=== PATIENT | female | born 1970 | race Caucasian/White ===

== ENCOUNTER 2018-01-09 17:18 | Emergency (ER) | payer BC ==
[2018-01-09] MEDS ORDERED: Norflex 60 MG/2 ML IM ONE (18:18)
[2018-01-09] MEDS ORDERED: Norflex 60 MG/2 ML ONE (18:23)
--- NOTE | 2018-01-09 18:44 | ERPHSYRPT ---
- History of Present Illness Time Seen by Provider: 01/09/18 18:05 Source: patient Exam Limitations: no limitations Patient Subjective Stated Complaint: Neck Pain x6 weeks Triage Nursing Assessment: Pt presents to the ED with complaints of neck pain x approximately 6 weeks ago. Pt states no new injury. Pt states she is seeing specialist and waiting for MRI for diagnosis. Pt states she last saw PCP approximately 4 weeks ago for complaint. No distress noted, skin PWD. Physician History: Pt. presents with neck pain for past 5-6 weeks.. Patient with previous C4/C5 fusion approximately 15 years ago and state was doing fine until recent episodes. Patient described increasing neck discomfort along with muscle spasms. Patient also awakens with left arm numbness/tingling. Patient have seen her neurosurgeon and are fighting insurance company for an MRI. Patient states she tried lifting her grandchild and noticed increasing neck discomfort and spasms a few days ago. Patient is able to use hands and fingers without difficulties Timing/Duration: week(s) (5-6), intermittent, worse Severity: moderate Modifying Factors: Improves With: immobilization (improves), movement (worsens) Associated Symptoms: No shortness of breath, No headaches, No weakness Allergies/Adverse Reactions: No Known Drug Allergies Allergy (Verified 11/08/15 12:56) Hx Tetanus, Diphtheria Vaccination/Date Given: Yes Hx Influenza Vaccination/Date Given: No Hx Pneumococcal Vaccination/Date Given: No Immunizations Up to Date: No - Review of Systems Constitutional: No Fever, No Chills Eyes: No Symptoms Ears, Nose, & Throat: No Symptoms Respiratory: No Symptoms, No Cough, No Dyspnea Cardiac: No Symptoms, No Chest Pain, No Edema, No Syncope Abdominal/Gastrointestinal: No Symptoms, No Abdominal Pain, No Nausea, No Vomiting, No Diarrhea Genitourinary Symptoms: No Symptoms, No Dysuria Musculoskeletal: No Symptoms, No Back Pain, No Neck Pain Skin: No Symptoms, No Rash Neurological: Parasthesia (bilateral upper extremities), No Dizziness, No Focal Weakness, No Headache, No Lethargy, No Sensory Changes, No Speech Changes Psychological: No Symptoms Endocrine: No Symptoms Hematologic/Lymphatic: No Symptoms Immunological/Allergic: No Symptoms All Other Systems: Reviewed and Negative - Past Medical History Pertinent Past Medical History: Yes Neurological History: Other ENT History: No Pertinent History Cardiac History: No Pertinent History Respiratory History: No Pertinent History Endocrine Medical History: No Pertinent History Musculoskeletal History: Osteoarthritis GI Medical History: No Pertinent History History: No Pertinent History Psycho-Social History: No Pertinent History Female Reproductive Disorders: No Pertinent History, Other Other Medical History: shingles - Past Surgical History Past Surgical History: Yes Neuro Surgical History: Neurological Surgery Cardiac: No Pertinent History Respiratory: No Pertinent History Gastrointestinal: No Pertinent History Genitourinary: No Pertinent History Musculoskeletal: Orthopedic Surgery Female Surgical History: Tubal Ligation Other Surgical History: left finger pinned, 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, c5-c6 fusion, knee surgery - Social History Smoking Status: Current every day smoker How long have you smoked: 30 years Exposure to second hand smoke: Yes Drug Use: none Patient Lives Alone: No - Female History Hx Now: No - Nursing Vital Signs Nursing Vital Signs: Initial Vital Signs Temperature 97.9 F 01/09/18 17:31 Pulse Rate 89 01/09/18 17:31 Respiratory Rate 16 01/09/18 17:31 Blood Pressure 176/117 01/09/18 17:31 O2 Sat by Pulse Oximetry 96 01/09/18 17:31 Pain Scale Pain Intensity 8 - Physical Exam General Appearance: no apparent distress, alert Eye Exam: PERRL/EOMI, eyes nml inspection Ears, Nose, Throat Exam: normal ENT inspection, TMs normal, pharynx normal, moist mucous membranes Neck Exam: normal inspection, supple, midline tenderness (there is noted paracervical muscle spasms present) Respiratory Exam: normal breath sounds, lungs clear, No respiratory distress Cardiovascular Exam: regular rate/rhythm, normal heart sounds, normal peripheral pulses Gastrointestinal/Abdomen Exam: soft, normal bowel sounds, No tenderness, No mass Pelvic Exam: not done Rectal Exam: deferred Back Exam: normal inspection, normal range of motion, No CVA tenderness, No vertebral tenderness Extremity Exam: normal inspection, normal range of motion, pelvis stable Neurologic Exam: alert, oriented x 3, cooperative, normal mood/affect, nml cerebellar function, nml station & gait, sensation nml, No motor deficits, No sensory deficit, No disoriented, No motor weakness, No facial droop Skin Exam: normal color, warm, dry, No rash Lymphatic Exam: No adenopathy SpO2: 96 Oxygen Delivery: Room Air - Course Nursing assessment & vital signs reviewed: Yes Ordered Tests: Medication Summary Discontinued Medications Generic Name Dose Route Start Last Admin Trade Name Freq PRN Reason Stop Dose Admin Orphenadrine Citrate 60 mg 01/09/18 18:18 01/09/18 18:24 Norflex 60 Mg/2 Ml IM 01/09/18 18:19 60 mg STAT ONE Administration Orphenadrine Citrate Confirm 01/09/18 18:23 Norflex 60 Mg/2 Ml Administered 01/09/18 18:24 Dose 60 mg .ROUTE .STK-MED ONE - Progress Progress: improved Progress Note: 01/09/18 18:46 we'll give patient Norflex injection for discomfort. We will continue with Flexeril for outpatient therapy Counseled pt/family regarding: diagnosis - Departure Time of Disposition: 18:47 Departure Disposition: Home Clinical Impression: Cervical paraspinal muscle spasm Condition: Stable Critical Care Time: No Referrals: [facility] [Primary Care Provider] - Instructions: Cervical Muscle Strain (DC), Generalized Neck Pain Additional Instructions: Rx: Flexeril. May also take Motrin and/or Tylenol for pain. Return for worsening pain, numbness, tingling, weakness or any problems Prescriptions: Cyclobenzaprine HCl [Flexeril] 10 mg PO BID PRN 10 Days #20 tablet PRN Reason: Muscle Spasms
[2018-01-09 18:56] VITALS: BP 138/84; PULSE 80; O2SAT 98
== END 2018-01-09 18:57 | disposition home or self-care (01) ==
LOC: ED 17:18
DX: M62.830 Muscle spasm of back (principal); M54.2 Cervicalgia; R20.0 Anesthesia of skin
CPT/HCPCS: 96372; 99283; J2360

== ENCOUNTER 2019-04-07 15:00 | Emergency (ER) | payer BC ==
--- NOTE | 2019-04-07 15:14 | ERPHSYRPT ---
- History of Present Illness Time Seen by Provider: 04/07/19 15:14 Source: patient Exam Limitations: no limitations Physician History: 49 y/o white female presents with cough for a week. not responding to otc meds. mucinex liquid helping a little. pt is a smoker of cigarettes. denies cp. Timing/Duration: day(s) (7), worse Cough Quality/Degree: dry cough Possible Cause: no prior episodes Modifying Factors: Improves With: coughing Associated Symptoms: cough Allergies/Adverse Reactions: No Known Drug Allergies Allergy (Verified 11/08/15 12:56) Hx Tetanus, Diphtheria Vaccination/Date Given: Yes Hx Influenza Vaccination/Date Given: No Hx Pneumococcal Vaccination/Date Given: No - Review of Systems Constitutional: No Symptoms Eyes: No Symptoms Ears, Nose, & Throat: No Symptoms Respiratory: Cough Cardiac: No Symptoms Abdominal/Gastrointestinal: No Symptoms Genitourinary Symptoms: No Symptoms Musculoskeletal: No Symptoms Skin: No Symptoms Neurological: No Symptoms Psychological: No Symptoms Endocrine: No Symptoms Hematologic/Lymphatic: No Symptoms Immunological/Allergic: No Symptoms All Other Systems: Reviewed and Negative - Past Medical History Pertinent Past Medical History: Yes Neurological History: Other ENT History: No Pertinent History Cardiac History: No Pertinent History Respiratory History: No Pertinent History Endocrine Medical History: No Pertinent History Musculoskeletal History: Osteoarthritis GI Medical History: No Pertinent History History: No Pertinent History Psycho-Social History: No Pertinent History Female Reproductive Disorders: No Pertinent History, Other Other Medical History: shingles - Past Surgical History Past Surgical History: Yes Neuro Surgical History: Neurological Surgery Cardiac: No Pertinent History Respiratory: No Pertinent History Gastrointestinal: No Pertinent History Genitourinary: No Pertinent History Musculoskeletal: Orthopedic Surgery Female Surgical History: Tubal Ligation Other Surgical History: left finger pinned, 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, c5-c6 fusion, knee surgery - Social History Smoking Status: Current every day smoker How long have you smoked: 30 years Exposure to second hand smoke: Yes Drug Use: none Patient Lives Alone: No - Physical Exam General Appearance: mild distress, alert, anxiety Eye Exam: PERRL/EOMI, eyes nml inspection Ears, Nose, Throat Exam: normal ENT inspection, moist mucous membranes Neck Exam: normal inspection, non-tender, supple, full range of motion Respiratory Exam: normal breath sounds, lungs clear, airway intact, No chest tenderness, No respiratory distress Cardiovascular Exam: regular rate/rhythm, normal heart sounds, normal peripheral pulses Gastrointestinal/Abdomen Exam: No tenderness Pelvic Exam: not done Rectal Exam: not done Back Exam: normal inspection, normal range of motion, No CVA tenderness, No vertebral tenderness Extremity Exam: normal inspection, normal range of motion, pelvis stable Neurologic Exam: alert, oriented x 3, cooperative, supervisor fabrication II-XII nml as tested Skin Exam: normal color, warm, dry Lymphatic Exam: No adenopathy SpO2 Interpretation: normal O2 Delivery: Room Air - Course Nursing assessment & vital signs reviewed: Yes - Progress Progress: unchanged Air Movement: good Blood Culture(s) Obtained: No Antibiotics given: No Counseled pt/family regarding: diagnosis, need for follow-up - Departure Departure Disposition: Home Clinical Impression: Bronchitis Condition: Stable Critical Care Time: No Referrals: [facility] [Primary Care Provider] - Additional Instructions: drink plenty of fluids. avoid exposure to smoke of any kind. follow up with primary doctor for persistent symptoms Prescriptions: Azithromycin 250 mg [Zithromax 250 MG TABLET] 250 mg PO ZPACK #6 tablet Hydrocodone Bit/Acetaminophen [Hydrocodone-Acetaminophen Soln] 10 ml PO Q6H # 120 ml Prednisone 10 mg [Deltasone 10 mg] 10 mg PO TID #12 tablet
[2019-04-07 15:24] VITALS: BP 135/93
[2019-04-07 15:46] VITALS: PULSE 67; O2SAT 94
== END 2019-04-07 15:52 | disposition home or self-care (01) ==
LOC: ED 15:00
DX: J40 Bronchitis, not specified as acute or chronic (principal)
CPT/HCPCS: 99283